=== PATIENT | female | born 1970 | race Caucasian/White ===

== ENCOUNTER 2017-09-02 23:01 | Emergency (ER) | payer OTHER ==
[~2017-09-02] VITALS: Ht 167.6 cm; Wt 70.9 kg
[~2017-09-02 23:01] MED LIST: Bentyl PO; ENDOCET 5-3251 EACH PO; Levothroid,Synthroid PO; MIRALAX255 GM PO; MOTRIN IB200 MG PO; Motrin PO; Protonix PO; SYNTHROID50 MCG PO; TYLENOL REGULA325 MG PO; Topamax PO; Ultram PO; ZYRTEC10 M2 PO
[2017-09-03] MEDS ORDERED: PHENERGAN25 MG PR (00:39)
[2017-09-03] MEDS ORDERED: PROMETHAZINE HC25 M1 PO (00:39)
[2017-09-03 00:54] VITALS: BP 122/90
== END 2017-09-03 00:54 | disposition home or self-care (01) ==
LOC: EME 23:01
DX: J10.1 Influenza due to other identified influenza virus with other respiratory manifestations (principal)
CPT/HCPCS: 87502; 99281; 99283; Q0169